=== PATIENT | born 1980 | race Caucasian/White ===

== ENCOUNTER → 2024-01-27 12:46 | Outpatient (BNVA) | payer BC, SELFPAY | PROVIDERS: Referring Provider Family Medicine; Visit Provider Internal Medicine | DX: E05.00 Thyrotoxicosis with diffuse goiter without thyrotoxic crisis or storm (principal) | CPT/HCPCS: 36415; 82533; 84146; 84305; 84439; 84443; 84480; 86003; 86008 ==